=== PATIENT | male | born 1965 | race African-American/Black ===

== ENCOUNTER 2021-07-23 16:06 | Inpatient (IN) | payer OTHER ==
[2021-07-23 17:28] LABS: #Eosinphils 0.1 10x3/uL (0.0-0.5); #Monocytes 0.7 10x3/uL (0.0-1.1); #Neutrophils 3.9 10x3/uL (1.5-8.4); %Basophils 0.1 % (0.0-2.0); %Lymphocytes 30.6 % (18.0-47.0); %Monocytes 10.8 % (0.0-10.0); %Neutrophils 56.5 % (40.0-75.0); Hemoglobin 9.6 g/dL (13.5-17.5); Mean Corpuscular HGB CONC 31.6 g/dL (32.0-36.0); Mean Corpuscular Hemoglobin 27.2 pg (27.0-33.0); Mean Corpuscular Volume 86.1 fl (81.2-95.1); Mean Platelet Volume 11.1 fl (7.4-10.4); Platelet Count 184 10x3/uL (150-450); RBC Distribution Width 15.5 % (11.5-14.5); Red Blood Cell (RBC) Count 3.53 10x6/uL (4.32-5.72); White Blood Cell (WBC) Count 6.8 10x3/uL (3.5-10.5)
[2021-07-23 17:42] LABS: ALT (SGPT) 26 U/L (8-55); AST (SGOT) 21 U/L (5-34); Albumin 4.1 g/dL (3.5-5.0); Alkaline Phosphatase 54 U/L (40-110); Anion Gap 15 mmol/L (10-20); BUN (Urea Nitrogen) 92 mg/dL (8.4-25.7); Bilirubin, Total 0.2 mg/dL (0.2-1.2); Calc. Creatinine Clearance 0 mL/min (70-130); Calcium 8.9 mg/dL (7.8-10.44); Carbon Dioxide 18 mmol/L (22-29); Chloride 108 mmol/L (98-107); Globulin 3.8 g/dL (2.4-3.5); Glucose 117 mg/dL (70-105); Potassium 6.4 mmol/L (3.5-5.1); Protein, Total 7.9 g/dL (6.0-8.3); Sodium 135 mmol/L (136-145)
[2021-07-23] MEDS ORDERED: Insulin Regular 300 UNITS/3 ML VIAL ONE (19:12)
[2021-07-23] MEDS ORDERED: Dextrose 50% Abboject 50 ML SYRINGE ONE (19:13)
[2021-07-23 19:30] LABS: Anion Gap 17 mmol/L (10-20); BUN (Urea Nitrogen) 89 mg/dL (8.4-25.7); Calc. Creatinine Clearance 0 mL/min (70-130); Carbon Dioxide 16 mmol/L (22-29); Chloride 109 mmol/L (98-107); Glucose 109 mg/dL (70-105); Sodium 135 mmol/L (136-145)
[2021-07-23 19:37] LABS: Potassium 6.6 mmol/L (3.5-5.1)
[2021-07-23] MEDS ORDERED: Sodium Bicarb 50 MEQ/50 ML Abboject 8.4% SYRINGE ONE (21:30)
[2021-07-23] MEDS ORDERED: Sodium Bicarb 50 MEQ/50 ML VIAL ONE (21:49)
[2021-07-23] MEDS ORDERED: Calcium Chloride 1 GM/10 ML Abboject SYRINGE ONE (21:50)
[2021-07-23] MEDS ORDERED: Acetaminophen 325 MG TAB PO PRN (22:36)
[2021-07-23] MEDS ORDERED: Ondansetron PF 4 MG/2 ML Vial IVP PRN (22:36)
[2021-07-23] MEDS ORDERED: HumaLOG 300 UNITS/3 ML VIAL SC PRN (22:36)
[2021-07-23] MEDS ORDERED: Senokot S 8.6-50 MG TAB PO PRN (22:36)
[2021-07-23] MEDS ORDERED: Dextrose 5% in Water 1,000 ML IV PRN (22:36)
[2021-07-23] MEDS ORDERED: Dextrose 50% Abboject 50 ML SYRINGE SLOW IVP PRN (22:36)
[2021-07-23] MEDS ORDERED: Calcium Carbonate 500 MG ChewTAB PO PRN (22:36)
[2021-07-23 22:38] LABS: ALT (SGPT) 22 U/L (8-55); AST (SGOT) 19 U/L (5-34); Albumin 3.4 g/dL (3.5-5.0); Alkaline Phosphatase 47 U/L (40-110); Anion Gap 16 mmol/L (10-20); BUN (Urea Nitrogen) 85 mg/dL (8.4-25.7); Bilirubin, Total 0.2 mg/dL (0.2-1.2); Calc. Creatinine Clearance 0 mL/min (70-130); Calcium 8.2 mg/dL (7.8-10.44); Carbon Dioxide 14 mmol/L (22-29); Chloride 116 mmol/L (98-107); Globulin 3.1 g/dL (2.4-3.5); Glucose 113 mg/dL (70-105); Potassium 5.9 mmol/L (3.5-5.1); Protein, Total 6.5 g/dL (6.0-8.3); Sodium 140 mmol/L (136-145)
[2021-07-23 22:41] LABS: Bilirubin Neg (Negative); Blood, Urine 10 (Negative); Clarity Clear (Clear); Glucose, Urine (Dipstick) 50 mg/dL (Negative); Ketone, Urine Negative (Negative); Leukocyte Negative (Negative); Nitrite Negative (Negative); Protein, Urine (Dipstick) Negative (Neg-Trace); Urobilinogen Normal mg/dL (Less than 2)
[2021-07-23 22:57] LABS: Bacteria/HPF Rare-Few HPF (None Seen); Squamous Epithelial 0-3 HPF (0-3); WBC/HPF 0-3 HPF (0-3)
[2021-07-23 23:25] LABS: SARS-CoV-2 NAA Rapid Test Not Detected (NotDetected)
[2021-07-24] MEDS ORDERED: Calcium Gluc 4.6 MEQ/10 ML (100 MG/ML) SLOW IVP SCH (01:00)
[2021-07-24] MEDS: Sodium Chloride 0.45% 1,000 ML IV SCH ×2 (01:24→11:15)
[2021-07-24] MEDS: Tamsulosin HCl 0.4 MG CAP PO SCH ×2 (01:26)
[2021-07-24 01:49] VITALS: BMI 28.1
[2021-07-24] MEDS ORDERED: FLU VACC QS2021-22(6MOS UP)/PF 60 MCG/0.5 ML SYRINGE IM ONE (02:30)
[2021-07-24 03:00] LABS: Creatinine, Urine 101.77 mg/dL (63-166)
[2021-07-24 04:18] LABS: #Eosinphils 0.1 10x3/uL (0.0-0.5); #Monocytes 0.6 10x3/uL (0.0-1.1); #Neutrophils 2.9 10x3/uL (1.5-8.4); %Basophils 0.4 % (0.0-2.0); %Eosinophils 0.9 % (0.0-6.0); %Lymphocytes 34.9 % (18.0-47.0); %Monocytes 11.1 % (0.0-10.0); %Neutrophils 52.2 % (40.0-75.0); Hemoglobin 7.5 g/dL (13.5-17.5); Mean Corpuscular HGB CONC 32.3 g/dL (32.0-36.0); Mean Corpuscular Hemoglobin 27.6 pg (27.0-33.0); Mean Corpuscular Volume 85.3 fl (81.2-95.1); Mean Platelet Volume 11.6 fl (7.4-10.4); PTT 20.5 sec (22.0-33.0); Platelet Count 139 10x3/uL (150-450); Prothrombin Time 11.1 sec (9.5-12.1); RBC Distribution Width 15.4 % (11.5-14.5); Red Blood Cell (RBC) Count 2.72 10x6/uL (4.32-5.72); White Blood Cell (WBC) Count 5.6 10x3/uL (3.5-10.5)
[2021-07-24 04:23] LABS: Anion Gap 13 mmol/L (10-20); BUN (Urea Nitrogen) 67 mg/dL (8.4-25.7); Calc. Creatinine Clearance 53 mL/min (70-130); Calcium 8.8 mg/dL (7.8-10.44); Carbon Dioxide 19 mmol/L (22-29); Chloride 111 mmol/L (98-107); Glucose 106 mg/dL (70-105); Potassium 5.3 mmol/L (3.5-5.1); Sodium 138 mmol/L (136-145)
[2021-07-24] MEDS ORDERED: Aripiprazole 10 MG TAB PO SCH ×2 (09:00→21:00)
[2021-07-24] MEDS ORDERED: Famotidine 20 MG TAB PO SCH (09:00)
[2021-07-24] MEDS: Aspirin 81 mg Enteric Coated Tablet PO SCH (09:02)
[2021-07-24] MEDS: Polyethylene Glycol 3350 17 GM Packet PO SCH (09:06)
[2021-07-24 09:23] LABS: Potassium, Urine 17.5 mmol/L
[2021-07-24 17:30] LABS: Hemoglobin A1c 6.4 % (4.0-6.0)
[2021-07-24 17:32] LABS: Anion Gap 12 mmol/L (10-20); BUN (Urea Nitrogen) 40 mg/dL (8.4-25.7); Calc. Creatinine Clearance 86 mL/min (70-130); Carbon Dioxide 23 mmol/L (22-29); Chloride 107 mmol/L (98-107); Glucose 107 mg/dL (70-105); Potassium 5.1 mmol/L (3.5-5.1); Sodium 137 mmol/L (136-145)
[2021-07-24] MEDS ORDERED: Atorvastatin Calcium 40 MG TAB PO SCH (21:00)
[2021-07-24] MEDS ORDERED: Tamsulosin HCl 0.4 MG CAP PO SCH (21:00)
[2021-07-24] MEDS ORDERED: Divalproex Sodium 250 MG (DR) TAB PO SCH (21:00)
[2021-07-25] MEDS: Aspirin 81 mg Enteric Coated Tablet PO SCH (08:10)
[2021-07-25 08:30] LABS: #Eosinphils 0.1 10x3/uL (0.0-0.5); #Monocytes 0.7 10x3/uL (0.0-1.1); #Neutrophils 3.4 10x3/uL (1.5-8.4); %Basophils 0.2 % (0.0-2.0); %Eosinophils 0.8 % (0.0-6.0); %Lymphocytes 35.8 % (18.0-47.0); %Monocytes 10.4 % (0.0-10.0); %Neutrophils 52.2 % (40.0-75.0); Hemoglobin 8.5 g/dL (13.5-17.5); Mean Corpuscular HGB CONC 32.4 g/dL (32.0-36.0); Mean Corpuscular Volume 86.2 fl (81.2-95.1); Mean Platelet Volume 11.2 fl (7.4-10.4); Platelet Count 142 10x3/uL (150-450); RBC Distribution Width 15.4 % (11.5-14.5); Red Blood Cell (RBC) Count 3.04 10x6/uL (4.32-5.72); White Blood Cell (WBC) Count 6.6 10x3/uL (3.5-10.5)
[2021-07-25 08:33] LABS: ALT (SGPT) 20 U/L (8-55); AST (SGOT) 16 U/L (5-34); Albumin 3.4 g/dL (3.5-5.0); Alkaline Phosphatase 42 U/L (40-110); Anion Gap 11 mmol/L (10-20); BUN (Urea Nitrogen) 24 mg/dL (8.4-25.7); Bilirubin, Total 0.3 mg/dL (0.2-1.2); Calc. Creatinine Clearance 112 mL/min (70-130); Calcium 8.8 mg/dL (7.8-10.44); Carbon Dioxide 24 mmol/L (22-29); Chloride 109 mmol/L (98-107); Globulin 3.3 g/dL (2.4-3.5); Glucose 105 mg/dL (70-105); Potassium 4.6 mmol/L (3.5-5.1); Protein, Total 6.7 g/dL (6.0-8.3); Sodium 139 mmol/L (136-145)
[2021-07-25] MEDS ORDERED: Famotidine 20 MG TAB PO SCH (09:00)
[2021-07-25] MEDS ORDERED: Finasteride 5 MG TAB PO SCH (11:15)
[2021-07-25] MEDS: Polyethylene Glycol 3350 17 GM Packet PO SCH (11:41)
[2021-07-25] MEDS ORDERED: Tamsulosin HCl 0.4 MG CAP PO SCH (11:45)
[2021-07-25] MEDS ORDERED: metFORMIN 500 MG TAB PO SCH (21:00)
[2021-07-26] MEDS ORDERED: Finasteride 5 MG TAB PO SCH (09:00)
[2021-07-26] MEDS ORDERED: Tamsulosin HCl 0.4 MG CAP PO SCH (21:00)
== END 2021-07-25 13:50 | DRG 683 ==
LOC: CSHERS 16:06 → CSHIMCU 23:46 → EEVIPCON 23:46
PROVIDERS: ADMIT Family Medicine; ATTEND Family Medicine
PROC: 0T9B70Z Drainage of Bladder with Drainage Device, Via Natural or Artificial Opening (ICD-10-PCS; principal; 2021-07-23)
DX: N17.9 Acute kidney failure, unspecified (principal); E87.2 Acidosis; E87.5 Hyperkalemia; N13.9 Obstructive and reflux uropathy, unspecified; D64.9 Anemia, unspecified; R31.9 Hematuria, unspecified; E78.2 Mixed hyperlipidemia; E11.22 Type 2 diabetes mellitus with diabetic chronic kidney disease; N18.30 Chronic kidney disease, stage 3 unspecified; I12.9 Hypertensive chronic kidney disease with stage 1 through stage 4 chronic kidney disease, or unspecified chronic kidney disease; B18.2 Chronic viral hepatitis C; F25.9 Schizoaffective disorder, unspecified; Z20.822 Contact with and (suspected) exposure to COVID-19; Z89.422 Acquired absence of other left toe(s); Z87.891 Personal history of nicotine dependence
CPT/HCPCS: 36415; 36416; 76770; 80048; 80053; 81003; 81015; 82436; 82550; 82570; 83036; 84133; 84153; 84300; 85025; 85610; 85730; 86850; 86900; 86901; 93005; J0610; J1815; U0002